=== PATIENT | female | born 1970 | race Caucasian/White ===

== ENCOUNTER 2017-09-13 12:52 | Day surgery (SDC) | payer OTHER ==
[~2017-09-13] VITALS: Ht 167.6 cm; Wt 120.2 kg
[~2017-09-13 12:52] MED LIST: ALPR1 PO; FLUO10 PO; LEVSOD88 PO; NAPR500 PO; RANI150 PO
[2018-07-19] MEDS ORDERED: GABA300 (17:04)
[2018-07-19] MEDS ORDERED: MECL12.5 (17:04)
[2018-07-19] MEDS ORDERED: PANT20 (17:04)
== END 2017-09-13 14:40 | disposition home or self-care (01) ==
LOC: ORSCMMR 12:52
DX: K21.9 Gastro-esophageal reflux disease without esophagitis (principal); K44.9 Diaphragmatic hernia without obstruction or gangrene; K25.9 Gastric ulcer, unspecified as acute or chronic, without hemorrhage or perforation; K29.70 Gastritis, unspecified, without bleeding; K31.9 Disease of stomach and duodenum, unspecified; R13.10 Dysphagia, unspecified; K59.00 Constipation, unspecified; E03.9 Hypothyroidism, unspecified; Z79.899 Other long term (current) drug therapy; E66.9 Obesity, unspecified; Z68.41 Body mass index [BMI] 40.0-44.9, adult
CPT/HCPCS: 88305; 88342; J2250; J7120

== ENCOUNTER 2017-12-21 09:26 | Day surgery (SDC) | payer OTHER ==
[~2017-12-21] VITALS: Ht 167.6 cm; Wt 130.1 kg
[2017-12-21] MEDS ORDERED: DULO30 (09:41)
== END 2017-12-21 11:20 | disposition home or self-care (01) ==
LOC: ORSCSDS 09:26
PROVIDERS: Internal Medicine Gastroenterology
PROC: 0D758ZZ Dilation of Esophagus, Via Natural or Artificial Opening Endoscopic (ICD-10-PCS; principal; 2017-12-21 11:00)
PROC: 0DB68ZX Excision of Stomach, Via Natural or Artificial Opening Endoscopic, Diagnostic (ICD-10-PCS; principal; 2017-12-21 11:00)
DX: K21.9 Gastro-esophageal reflux disease without esophagitis (principal); K29.70 Gastritis, unspecified, without bleeding; R13.10 Dysphagia, unspecified; E66.01 Morbid (severe) obesity due to excess calories; E03.9 Hypothyroidism, unspecified; Z68.41 Body mass index [BMI] 40.0-44.9, adult; Z87.11 Personal history of peptic ulcer disease; K44.9 Diaphragmatic hernia without obstruction or gangrene
CPT/HCPCS: 88305; 88342; J2250

== ENCOUNTER → 2018-10-20 | Outpatient (CLI) | payer OTHER ==
[~2018-10-20] MED LIST changes: +DULO30; +GABA300; +MECL12.5; +PANT20
== END | disposition home or self-care (01) ==
LOC: LAB 12:35 → LAB SHORT 12:35
DX: M67.472 Ganglion, left ankle and foot (principal); M79.672 Pain in left foot
CPT/HCPCS: 87070; 87075; 87205